=== PATIENT | female | born 1945 | race Caucasian/White ===

== ENCOUNTER 2017-09-07 10:54 | Emergency (ER) | payer MEDICARE ==
[2017-09-07 11:06] VITALS: BP 167/91
--- NOTE | 2017-09-07 11:25 | ED Physician Documentation ---
Animal Bite - HISTORIAN Historian: patient - HPI Stated Complaint: Cat Bite Chief Complaint: Animal Bite Additional Information: bit last noct by pot own cat lt wrist red sl swollen. Onset: yesterday Where: home Animal: cat Appearance of Animal: appeared well Animal's Immunization Status: unknown (pt had pt advised to make sure cat healthy 14 days from now-if so can be assured of no rabies in cat ant time bite) Observation/ Capture of Animal: animal is known, can be observed Context of Attack: "provoked" attack Severity of Injury: bitten. denies: mucous membrane contact Location of Injury: L upper extremity Associated Symptoms: pain - ROS CONST: none EYES/ENT: none CVS/RESP: none NEURO: none - PAST HX Past History: other (cva) Allergies/Adverse Reactions: Allergies Allergy/AdvReac Type Severity Reaction Status Date / Time Sodium Penathol AdvReac Hallucinati Uncoded 04/26/14 02:22 ons Home Medications: Ambulatory Orders Medication Instructions Recorded Aspirin [Aspirin EC] 325 mg PO D 04/19/13 Mv/FA/Dha/Epa/Fish/Aram/D3/Gink 1 each PO D 04/19/13 [Women 50 + Vitapak Combo Pack] Sennosides/Docusate Sodium [Stool 1 each PO D 04/19/13 Softener Tablet] Vitamin D3/Vitamin K2 [D3 + K2 1 each PO D 04/19/13 Dots 1,000 Units Tab] Amoxicillin/Potassium Clav 875 each PO BID #20 tablet 09/07/17 [Augmentin 875Mg/125Mg] - SOCIAL HX Smoking History: less than 1 pack/day Alcohol Use: occasionally Drug Use: none - FAMILY HX Family History: no significant history - VITAL SIGNS Vital Signs: Vital Signs Temp Pulse Resp BP Pulse Ox 97.8 F 88 18 167/91 96 09/07/17 11:02 09/07/17 11:02 09/07/17 11:02 09/07/17 11:02 09/07/17 11:02 - REVIEWED ASSESSMENTS Nursing Assessment Reviewed: Yes Vitals Reviewed: Yes Animal Bite Physical Exam - Physical Exam General Appearance: mild distress Skin: other (puncture wound x 2) Neuro/Vascular/Tendon: oriented x3, sensation nml. No: abnml cap refill HEENT: atraumatic Resp/CVS: chest non-tender, breath sounds nml, heart sounds nml, no resp. distress, lungs clear, reg. rate & rhythm Abdomen: uninjured,nml inspection Back: uninjured, nml inspection Discharge Clincal Impression: cat bite lt forearm Prescriptions: Amoxicillin/Potassium Clav [Augmentin 875Mg/125Mg] 875 each PO BID #20 tablet Referrals: Silvia Barbosa MD [Primary Care Provider] - 2 Days Comments: pt advised -make sure cat well in 14 days otherwise must consider rabies Condition: Good Disposition: 01 HOME, SELF-CARE Decision to Admit: NO Decision Time: 11:29
== END 2017-09-07 11:23 | disposition home or self-care (01) ==
LOC: ED 10:54
DX: S51.852A Open bite of left forearm, initial encounter (principal); W55.01XA Bitten by cat, initial encounter; Y93.9 Activity, unspecified; Y99.9 Unspecified external cause status
CPT/HCPCS: 99283